=== PATIENT | male | born 1955 | race Caucasian/White ===

== ENCOUNTER 2024-09-07 13:32 | Emergency (ER) | payer MEDICARE ==
[~2024-09-07] VITALS: Ht 182.9 cm; Wt 97.5 kg
[2024-09-07 14:37] LABS: BASO% 0.5 % (0-3); EOS% 2.2 % (0-8); HEMATOCRIT 39.6 % (39.0-50.0); LYMPH% 15.3 % (15-41); MEAN CELL VOLUME 93.8 fL CALC (80.0-100.0); MEAN CORPUSCULAR HGB 30.8 pG CALC (26.0-32.0); MEAN CORPUSCULAR HGB CONC 32.8 g/dL CAL (32.0-36.0); MONO% 7.3 % (2-13); NEUT# 2.78 thou/uL (1.82-7.42); NEUT% 74.7 % (42-76); RED BLOOD COUNT 4.22 mill/uL (4.70-6.10)
[2024-09-07 14:51] LABS: INTERNATIONAL NORMALIZED RATIO 1.3 RATIO (0.7-1.3)
[2024-09-07 14:53] LABS: ACT PARTIAL THROMBO TIME 34.1 SECONDS (20.0-32.5); PROTHROMBIN TIME 13.3 SECONDS (9.0-12.5)
[2024-09-07 15:08] LABS: BILIRUBIN, TOTAL 0.7 mg/dL (0.2-1.3); CREATININE 0.7 mg/dL (0.7-1.3); POTASSIUM 3.5 mmol/l (3.5-5.1); TOTAL PROTEIN 6.6 g/dL (6.3-8.2)
[2024-09-07] MEDS ORDERED: KETOROLAC TROMETHAMINE 30 MG/ML SDV IM ONE (15:50)
[2024-09-07 16:39] LABS: URINE BILIRUBIN - DIPSTICK Negative (NEGATIVE); URINE BLOOD DIPSTICK Moderate (NEGATIVE); URINE GLUCOSE - DIPSTICK 100 mg/dL (NEGATIVE); URINE KETONE Negative (NEGATIVE); URINE LEUK ESTERASE Negative (NEGATIVE); URINE NITRITE - DIPSTICK Negative (Negative); URINE PROTEIN - DIPSTICK Trace mg/dL (NEG-TRACE); URINE SPECIFIC GRAVITY 1.025; URINE UROBILINOGEN - DIPSTICK 0.2 E.U./dL (0.2)
[2024-09-07] MEDS ORDERED: METHOCARBAMOL500 MG PO (16:46)
[2024-09-07 16:51] LABS: URINE COLOR Yellow
[2024-09-07 16:52] LABS: URINE MUCUS FEW hpf (NONE-FEW); URINE RBC 25-50 RBC/hpf (0-5); URINE WBC 0-2 WBC/hpf (0-5)
[2024-09-07 16:53] VITALS: BP 144/72
== END 2024-09-07 16:55 | disposition home or self-care (01) ==
LOC: ED 13:32
PROVIDERS: Clinical Nurse Specialist Emergency
DX: S70.02XA Contusion of left hip, initial encounter (principal); S70.01XA Contusion of right hip, initial encounter; M16.0 Bilateral primary osteoarthritis of hip; M06.9 Rheumatoid arthritis, unspecified; Z87.81 Personal history of (healed) traumatic fracture; W01.0XXA Fall on same level from slipping, tripping and stumbling without subsequent striking against object, initial encounter

== ENCOUNTER 2024-09-25 14:43 | Emergency (ER) | payer MEDICARE ==
[~2024-09-25] VITALS: Ht 182.9 cm; Wt 99.7 kg
[~2024-09-25 14:43] MED LIST: METHOCARBAMOL500 MG PO
[2024-09-25 14:50] VITALS: BP 159/76
[2024-09-25 15:01] VITALS: BP 152/56
[2024-09-25 15:31] VITALS: BP 150/60
[2024-09-25 16:01] VITALS: BP 154/68
[2024-09-25 16:31] VITALS: BP 136/62
[2024-09-25 16:46] VITALS: BP 136/62
== END 2024-09-25 16:45 | disposition home or self-care (01) ==
LOC: ED 14:43
DX: S72.141K Displaced intertrochanteric fracture of right femur, subsequent encounter for closed fracture with nonunion (principal); V89.2XXD Person injured in unspecified motor-vehicle accident, traffic, subsequent encounter; Z87.81 Personal history of (healed) traumatic fracture; Z91.81 History of falling